=== PATIENT | female | born 1965 | race Caucasian/White ===

== ENCOUNTER 2020-02-04 06:52 | Emergency (ER) | payer MEDICAID ==
[~2020-02-04] VITALS: Ht 175.3 cm; Wt 94.3 kg
[2020-02-04 07:20] VITALS: BP 119/73
[2020-02-04] MEDS ORDERED: KETOROLAC TROMETH 60MG/2ML VIAL IM ONE (07:45)
== END 2020-02-04 09:01 | disposition home or self-care (01) ==
LOC: ER 06:52
DX: M50.30 Other cervical disc degeneration, unspecified cervical region (principal); M47.892 Other spondylosis, cervical region
CPT/HCPCS: 72040; 96372; 99283; J1885

== ENCOUNTER 2020-05-19 08:33 | Emergency (ER) | payer MEDICAID ==
[~2020-05-19] VITALS: Ht 175.3 cm; Wt 93.0 kg
[2020-05-19 09:22] LABS: Basophils # (auto) 0 10 ^3/uL (0-0.2); Basophils % (auto) 0.5 % (0.0-2.0); Eosinophils # (auto) 0.1 10 ^3/uL (0-0.8); Eosinophils % (auto) 1.2 % (0.0-7.0); Hematocrit 45.9 % (36.0-46.0); Hemoglobin 14.9 g/dL (12.2-16.2); Lymphocytes # (auto) 0.3 10 ^3/uL (0.4-5.4); Lymphocytes % (auto) 4.5 % (10.0-50.0); Mean Corpuscular Hemoglobin 30.8 pg (28.0-32.0); Mean Corpuscular Hgb Conc. 32.4 g/dL (32.0-36.0); Mean Corpuscular Volume 94.9 fL (80.0-100.0); Monocytes # (auto) 0.6 10 ^3/uL (0-1.3); Monocytes % (auto) 9.5 % (0.0-12.0); Neutrophils # (auto) 4.9 10 ^3/uL (1.6-8.6); Neutrophils % (auto) 84.3 % (37.0-80.0); Platelet Count (auto) 183 10^3/uL (140-450); Red Blood Cells 4.84 10^6/uL (4.0-5.20); White Blood Cell 5.8 10^3/uL (4.4-10.8)
[2020-05-19 10:13] LABS: Alanine Aminotransferase 24 U/L (13-56); Albumin 3.9 g/dL (3.4-5.0); Anion Gap 6 (5-15); Aspartate Aminotransferase 17 U/L (15-37); Blood Urea Nitrogen 17 mg/dL (7-18); Calcium 8.7 mg/dL (8.5-10.1); Carbon Dioxide 27 mmol/L (21-32); Chloride 104 mmol/L (98-107); GFR African American 94 mL/min; GFR Non-African American 78 mL/min; Glucose 85 mg/dL (74-106); Magnesium 2.4 mg/dL (1.6-2.6); Potassium 3.3 mmol/L (3.5-5.1); Sodium 137 mmol/L (136-145)
[2020-05-19 10:18] LABS: Alkaline Phosphatase 58 U/L (45-117); Bilirubin, Total 0.4 mg/dL (0.2-1.0); Total Protein 7.1 g/dL (6.4-8.2)
[2020-05-19 10:56] VITALS: BP 114/67
[2020-05-19 10:57] LABS: Urine Bacteria FEW /hpf (None Seen); Urine Blood Negative /uL (Negative); Urine Specific Gravity 1.011 (1.001-1.035); Urine WBC 51 /hpf (0 - 5)
[2020-05-19] MEDS ORDERED: POTASSIUM EFFERVESENT TAB 25 MEQ PO ONE (11:45)
[2020-05-19] MEDS ORDERED: cefTRIAXone 1GM/50ML D5W 50 ML IV ONE ×2 (11:52→12:00)
== END 2020-05-19 12:32 | disposition home or self-care (01) ==
LOC: ER 08:33
DX: F41.9 Anxiety disorder, unspecified (principal); E87.6 Hypokalemia; N39.0 Urinary tract infection, site not specified; G35 Multiple sclerosis; I10 Essential (primary) hypertension; Z88.0 Allergy status to penicillin
CPT/HCPCS: 36415; 71045; 80053; 81001; 83735; 84484; 85025; 93005; 96365; 99285; J0696

== ENCOUNTER 2021-03-27 14:43 | Emergency (ER) | payer OTHER, MEDICAID ==
[~2021-03-27] VITALS: Ht 175.3 cm; Wt 91.6 kg
[2021-03-27] MEDS ORDERED: ASPirin 81 mg TAB PO ONE (15:00)
[2021-03-27 15:15] LABS: Basophils # (auto) 0 10 ^3/uL (0-0.2); Basophils % (auto) 0.6 % (0.0-2.0); Eosinophils # (auto) 0.1 10 ^3/uL (0-0.8); Eosinophils % (auto) 1.1 % (0.0-7.0); Hematocrit 45.1 % (36.0-46.0); Hemoglobin 15.9 g/dL (12.2-16.2); Lymphocytes # (auto) 0.4 10 ^3/uL (0.4-5.4); Lymphocytes % (auto) 6.8 % (10.0-50.0); Mean Corpuscular Hemoglobin 33.1 pg (28.0-32.0); Mean Corpuscular Hgb Conc. 35.3 g/dL (32.0-36.0); Mean Corpuscular Volume 93.9 fL (80.0-100.0); Monocytes # (auto) 0.6 10 ^3/uL (0-1.3); Monocytes % (auto) 10.2 % (0.0-12.0); Neutrophils # (auto) 5.1 10 ^3/uL (1.6-8.6); Neutrophils % (auto) 81.3 % (37.0-80.0); Red Cell Distribution Width 12.2 % (11.8-14.3); White Blood Cell 6.3 10^3/uL (4.4-10.8)
[2021-03-27 15:33] LABS: Albumin 4.2 g/dL (3.4-5.0); Anion Gap 10 (5-15); Blood Urea Nitrogen 14 mg/dL (7-18); Calcium 9.5 mg/dL (8.5-10.1); Carbon Dioxide 24 mmol/L (21-32); Chloride 102 mmol/L (98-107); Glucose 105 mg/dL (74-106); Sodium 136 mmol/L (136-145)
[2021-03-27 15:35] LABS: Alanine Aminotransferase 27 U/L (13-56); Aspartate Aminotransferase 25 U/L (15-37); BUN/Creatinine Ratio 14.6; GFR African American 77 mL/min; GFR Non-African American 64 mL/min
[2021-03-27 15:40] LABS: Alkaline Phosphatase 57 U/L (45-117); Bilirubin, Total 0.6 mg/dL (0.2-1.0); Total Protein 7.7 g/dL (6.4-8.2)
[2021-03-27 16:47] LABS: Potassium 2.7 mmol/L (3.5-5.1)
[2021-03-27] MEDS ORDERED: POTASSIUM EFFERVESENT TAB 25 MEQ PO ONE (17:00)
[2021-03-27 17:06] LABS: Urine Bacteria MANY /hpf (None Seen); Urine Blood Negative /uL (Negative); Urine Mucus FEW (None Seen); Urine Specific Gravity 1.011 (1.001-1.035); Urine WBC <1 /hpf (0 - 5)
[2021-03-27 18:42] VITALS: BP 132/87
== END 2021-03-27 18:43 | disposition home or self-care (01) ==
LOC: ER 14:43 → EDUNIT# 14:43 → EDBD 14:43 → ER 18:43
DX: R07.89 Other chest pain (principal); F41.9 Anxiety disorder, unspecified; E87.6 Hypokalemia; Z88.0 Allergy status to penicillin
CPT/HCPCS: 36415; 80053; 81001; 83880; 84484; 85025; 93005